=== PATIENT | female | born 1960 | race Caucasian/White ===

== ENCOUNTER → 2017-01-13 | Outpatient (CLI) | payer BC ==
--- NOTE | 2017-01-13 19:53 | KCIC ---
Bilateral digital screening mammograms with CAD: HISTORY Routine screening. COMPARISON Comparison is made to previous studies dated 10/24/2014 and 04/27/2012. FINDINGS Breast density category B. The skin and nipples show no abnormalities. No abnormal lymph nodes are seen in the axilla. The breast parenchyma shows scattered fibroglandular density. There are no dominant masses, suspicious calcifications or architectural distortions. IMPRESSION No evidence of malignancy. Recommend routine annual mammographic screening. This study was interpreted with the benefit of Computerized Aided Detection (CAD). Mammography is not 100% sensitive in detecting breast cancer. Therefore, a self breast exam and a clinical breast exam are very important. A negative mammogram does not negate a clinically suspicious finding and should not result in a delay in biopsying a clinically suspicious abnormality. BI-RADS category 1. Negative. This patient's information has been entered into a reminder system for the patient to be notified with the results of this examination and a target date for her next mammograms. Electronically signed by: Candelaria Eubanks MD (Jan 13, 2017 19:51:48)
== END | disposition home or self-care (01) ==
LOC: KCIC MAMMO 14:48
PROVIDERS: ATTEND Obstetrics & Gynecology
DX: Z12.31 Encounter for screening mammogram for malignant neoplasm of breast (principal)
CPT/HCPCS: G0202; 77067

== ENCOUNTER → 2018-03-15 | Outpatient (CLI) | payer BC | END | disposition home or self-care (01) | LOC: KCIC MAMMO 15:31 | DX: Z12.31 Encounter for screening mammogram for malignant neoplasm of breast (principal) | CPT/HCPCS: 77067 ==

== ENCOUNTER 2019-02-24 09:13 | Emergency (ER) | payer BC ==
[~2019-02-24] VITALS: Ht 172.7 cm; Wt 102.1 kg
[2019-02-24 09:17] VITALS: BP 140/70
[2019-02-24] MEDS ORDERED: HYDR-3164 PO (09:41)
[2019-02-24] MEDS ORDERED: OFLO5DRO7 OT (09:41)
--- NOTE | 2019-02-24 09:41 | PHYS DOC ---
Past Medical History Past Medical History: GERD Past Surgical History: Cholecystectomy, Hysterectomy, Other Additional Past Surgical Histo: L EAR Alcohol Use: Occasionally Drug Use: None Adult General Chief Complaint Chief Complaint: EARACHE/EAR PAIN HPI HPI Patient is a 58 year old female who presents with pain and bleeding from her right ear after she landed [place] [place] today. The patient states that she heard a popping sensation as she landed. She denies any other injury. She denies headache or recent earache. Review of Systems Review of Systems Constitutional: Denies fever or chills [] Eyes: Denies change in visual acuity, redness, or eye pain [] HENT: See history of present illness Respiratory: Denies cough or shortness of breath [] Cardiovascular: No additional information not addressed in HPI [] Musculoskeletal: Denies back pain or joint pain [] Integument: Denies rash or skin lesions [] Neurologic: Denies headache, focal weakness or sensory changes [] Endocrine: Denies polyuria or polydipsia [] All other systems were reviewed and found to be within normal limits, except as documented in this note. Allergies Allergies Allergies Coded Allergies Type Severity Reaction Last Updated Verified Sulfa (Sulfonamide Antibiotics) Allergy Intermediate 02/24/19 Yes Physical Exam Physical Exam Constitutional: Well developed, well nourished, no acute distress, non-toxic appearance. [] HENT: Normocephalic, atraumatic, ruptured tympanic membrane to the right noted with blood in the canal, oropharynx moist, no oral exudates, nose normal. [] Eyes: PERRLA, EOMI, conjunctiva normal, no discharge. [] Neck: Normal range of motion, no tenderness, supple, no stridor. [] Cardiovascular:Heart rate regular rhythm, no murmur [] Lungs & Thorax: Bilateral breath sounds clear to auscultation [] Neurologic: Alert and oriented X 3, normal motor function, normal sensory function, no focal deficits noted. [] Psychologic: Affect normal, judgement normal, mood normal. [] Current Patient Data Vital Signs Vital Signs Date Time Temp Pulse Resp B/P (MAP) Pulse Ox O2 Delivery O2 Flow Rate FiO2 02/24/19 09:17 97.5 73 16 140/70 (93) 97 Room Air 97.5 EKG EKG [] Radiology/Procedures Radiology/Procedures [] Course & Med Decision Making Course & Med Decision Making Pertinent Labs and Imaging studies reviewed. (See chart for details) []The patient is to use the eardrops as prescribed. She is given a small amount of pain medication she has been counseled to not drive or operate heavy machinery while taking this medication. She will follow-up with ENT. Keily Disclaimer Keily Disclaimer This electronic medical record was generated, in whole or in part, using a voice recognition dictation system. Departure Departure Impression: Primary Impression: Barotrauma, otic Disposition: HOME, SELF-CARE Condition: STABLE Referrals: REILLY CALERO MD (PCP) EVA CALERO MD Patient Instructions: Ear Barotrauma Additional Instructions: Take the antibiotics as directed. Follow-up with Dr. Calero for further evaluation and treatment of your ruptured tympanic membrane. If worsening return to the emergency department. Scripts Hydrocodone/Apap 5-325 (NORCO 5-325 TABLET) 1 Each Tablet 1 TAB PO PRN Q6HRS PRN for PAIN, #14 TAB 0 Refills Prov: JOEY ASTORGA APRN 02/24/19 Ofloxacin (OFLOXACIN) 5 Ml Drops 5 ML OT BID for ruptured TM for 7 Days, DROP Prov: JOEY ASTORGA APRN 02/24/19 JOEY ASTORGA APRN Feb 24, 2019 09:41
== END 2019-02-24 10:18 | disposition home or self-care (01) ==
LOC: ER 09:13
DX: T70.0XXA Otitic barotrauma, initial encounter (principal); H72.91 Unspecified perforation of tympanic membrane, right ear; K21.9 Gastro-esophageal reflux disease without esophagitis; Z90.49 Acquired absence of other specified parts of digestive tract; Z90.710 Acquired absence of both cervix and uterus; Z88.2 Allergy status to sulfonamides; X58.XXXA Exposure to other specified factors, initial encounter
CPT/HCPCS: 99283

== ENCOUNTER → 2019-04-03 | Outpatient (CLI) | payer BC ==
[~2019-04-03] MED LIST: HYDR-3164 PO; OFLO5DRO7 OT
--- NOTE | 2019-04-03 17:03 | KCIC ---
CT temporal bone without contrast Indication: Conductive hearing loss on the left, history of perforated right eardrum and left ear surgery Technique: Noncontrast CT imaging was performed of the temporal bone, multiplanar reconstruction images submitted. One or more of the following individualized dose reduction techniques were utilized for this examination: 1. Automated exposure control 2. Adjustment of the mA and/or kV according to patient size 3. Use of iterative reconstruction technique. Comparison: None Findings: Left tympanic membrane is more thickened in appearance than the right. Left tegmen mastoideum appears thin, left mastoid air cells overall aerated. Vestibules, cochlea, semicircular canals appear symmetric in appearance. External auditory canals are patent bilaterally. There is nonspecific soft tissue density extending more medial to the manubrium of the malleus which appears eroded more distally. There is also nonvisualization of left incus, can be visualized on the right. Right mastoid air cells are aerated. There is a small air-fluid level on the left sphenoid sinus. IMPRESSION: 1. There is nonspecific soft tissue density extending medial to the partially eroded left manubrium of the malleus, consideration of sequela of fibrotic change given history of surgery versus sequela of cholesteatoma. There is also nonvisualization of left incus which is presumably eroded. There is some asymmetric thickening of the left tympanic membrane comparing with the right. 2. There is a small air-fluid level in the left sphenoid sinus, could be seen with acute sinusitis in the appropriate clinical setting. Electronically signed by: Nicholas Nicole MD (04/03/2019 5:00 PM) [id number]
== END | disposition home or self-care (01) ==
LOC: KCIC CT 15:22
PROVIDERS: ATTEND Otolaryngology
DX: H93.8X2 Other specified disorders of left ear (principal); H90.12 Conductive hearing loss, unilateral, left ear, with unrestricted hearing on the contralateral side
CPT/HCPCS: 70480

== ENCOUNTER → 2020-11-20 | Outpatient (CLI) | payer BC ==
--- NOTE | 2020-11-20 16:42 | KCIC ---
Bilateral digital screening mammograms Reason for examination: Routine screening. Comparison is made to previous study dated March 15, 2018 and priors Routine CC and MLO digital views obtained. Interpretation was made with the benefit of CAD. The skin and nipples show no abnormalities. No abnormal lymph nodes are seen. The breast parenchyma i s scattered fibroglandular elements. (Breast density: Category B.) There are no suspicious masses, lizarraga spicious calcifications or architectural distortions. Right upper outer breast mid depth intramammary lymph node is stable, benign. Impression: Negative mammogram. Recommend routine screening. BI-RADS Category 1: Negative. "Our facility is accredited by the [employer] Mammography [employer]." This patient's information has been entered into a reminder system for the patient to be notified wit h the results of her examination and a target date for the next mammogram. Electronically signed by: Chris Hatfield MD (11/20/2020 4:38 PM) [id number]
== END ==
LOC: KCIC MAMMO 08:12
PROVIDERS: ATTEND Obstetrics & Gynecology
DX: Z12.31 Encounter for screening mammogram for malignant neoplasm of breast (principal); N64.89 Other specified disorders of breast
CPT/HCPCS: 77067

== ENCOUNTER → 2021-10-20 | Outpatient (CLI) | payer BC ==
--- NOTE | 2021-10-20 17:02 | KCIC ---
XR KNEE _3 VIEWS_LT History: Reason: Posterior knee pain since June. Swelling. / Spl. Instructions: / History: Technique: 3 views left knee Comparison: None. Findings: No dislocation. No acute fracture. Mild degenerative changes most prominent within the medial and pat ellofemoral compartment. No significant knee joint effusion. Impression: 1. Mild left knee DJD. Electronically signed by: Karel Quintana DO (10/20/2021 4:59 PM) [id number]
== END ==
LOC: KCIC 08:47
PROVIDERS: ATTEND Family Medicine
DX: M17.12 Unilateral primary osteoarthritis, left knee (principal)
CPT/HCPCS: 73562

== ENCOUNTER → 2021-12-15 | Outpatient (CLI) | payer BC ==
--- NOTE | 2021-12-15 12:14 | KCIC ---
Bilateral digital screening 2-D and 3-D (digital breast tomosynthesis) mammogram: Reason for examination: Routine screening. Comparison: Mammogram from 11/20/2020 and 03/15/2018. Interpretation was made with the benefit of CAD. FINDINGS: Breast density: Category B. There are scattered areas of fibroglandular density. No suspicious breast mass, malignant appearing calcifications, or architectural distortion is seen. T here is an unchanged 6 mm oval circumscribed mass in the 9:00 position of the right breast, 6 cm from the nipple, which is likely a intramammary lymph node. IMPRESSION: No evidence of malignancy. Assessment: BI-RADS 2. Benign finding. Recommendation: Routine screening mammograms. The patient will receive a letter with the results in the mail. Patient information will be entered i nto the mammography reminder system with a target recall date for the next mammogram. A reminder johanne er will be generated. Electronically signed by: Rox Cole MD (12/15/2021 12:11 PM) [id number]
== END ==
LOC: KCIC MAMMO 10:36
PROVIDERS: ATTEND Obstetrics & Gynecology
DX: Z12.31 Encounter for screening mammogram for malignant neoplasm of breast (principal)
CPT/HCPCS: 77063; 77067

== ENCOUNTER → 2021-12-15 | Outpatient (CLI) | payer BC ==
--- NOTE | 2021-12-15 11:06 | KCIC ---
EXAMINATION: XR HIP (WITH OR WITHOUT PELVIS)LEFT 1 VIEW CLINICAL HISTORY: Left hip, inguinal pain. No injury, pain about 1 month. TECHNIQUE: XR HIP (WITH OR WITHOUT PELVIS)LEFT 1 VIEW Number of Images/Views: 2 COMPARISON: None FINDINGS: Joint space and alignment in the left hip maintained. Right hip unremarkable on limited evaluation. S I joints and pubic symphysis maintained. No acute fracture. 2.1 x 2.3 cm ovoid density projected with in the left hemipelvis, nonspecific. IMPRESSION: No acute osseous abnormality. Nonspecific 2.3 cm density projected within the left hemipelvis. Electronically signed by: Juan Benitez DO (12/15/2021 11:03 AM) [facility]HER
== END ==
LOC: KCIC 10:11
PROVIDERS: ATTEND Family Medicine
DX: M25.552 Pain in left hip (principal); R10.2 Pelvic and perineal pain
CPT/HCPCS: 73501

== ENCOUNTER → 2022-02-07 | Outpatient (CLI) | payer BC ==
--- NOTE | 2022-02-07 10:49 | KCIC ---
Study: MRI of the left hip without contrast INDICATION: Left hip pain. COMPARISON: Radiographs from 12/15/2021 TECHNIQUE: Multiplanar MR imaging of the left hip performed without the use of intravenous or intra-a rticular contrast. FINDINGS: Bones/hip: No fracture, avascular necrosis or stress reaction. No focally aggressive marrow signal ab normality. No subchondral cystic change or marrow edema at the left hip. Maintained femoral head/neck offset. Normal lateral center edge opening angle. Labrum/cartilage: Probable mild official chondrosis at the left hip. No high-grade or full-thickness chondral defect. Shallow undersurface labral tear best seen from anterior/superior to superior. Ligamentum teres: Heterogeneous but intact. Greater trochanteric bursa: Within normal limits. Musculotendinous: No tendon tear or advanced tendinosis. Within normal limits ischiofemoral space. No localized muscular edema around the left hip. Miscellaneous: Normal volume hip joint fluid. Unremarkable sciatic nerve bundle on the left. No ingui nal adenopathy or significant incidental finding within the partially assessed pelvis. IMPRESSION: 1. Shallow undersurface tear of the left acetabular labrum best seen from anterior/superior to super ior. Probable mild superficial chondrosis without a high-grade or full-thickness defect. 2. Degenerative heterogeneity of the ligamentum teres but remaining intact. No tendon tear or advanc ed tendinosis. Electronically signed by: HARPREET HERNANDEZ MD (02/07/2022 10:47 AM) [id number]
== END ==
LOC: KCIC MRI 07:55
PROVIDERS: ATTEND Family Medicine
DX: S73.192A Other sprain of left hip, initial encounter (principal); X58.XXXA Exposure to other specified factors, initial encounter; Y93.89 Activity, other specified; Y92.89 Other specified places as the place of occurrence of the external cause; Y99.8 Other external cause status
CPT/HCPCS: 73721

== ENCOUNTER → 2022-03-17 | Outpatient (CLI) | payer BC ==
[~2022-03-17] MED LIST changes: +BUPIVACAINE MPF 0.5% 10 ML VIAL. INT ART ONE; +IOHEXOL 300 MG/ML 50 ML VIAL. INT ART ONE; +LIDOCAINE 1% Multi-Dose 20 ML VIAL. ID ONE; +TRIAMCINOLONE PRES.FREE 40 MG/ML VIAL. INT ART ONE
--- NOTE | 2022-03-17 17:37 | KCIC ---
Exam Date: 03/17/2022 8:25 AM IR ARTHROCENT INT JT ASP/INJ LT Indication: Reason: OA Lt hip, chronic pain. / Spl. Instructions: 2mL Bupivicaine,1mL lidocaine,40mg Kenalog,7 sec fl, 2 images. / History: . PROCEDURE NOTE FOR FLUOROSCOPIC GUIDED NEEDLE PLACEMENT, IODINATED CONTRAST INJECTION, AND LEFT HIP T HERAPEUTIC INJECTION HISTORY: LEFT hip pain. PROCEDURE: A timeout was performed to ensure that the patient's name and procedure matched our inform ation. The staff personally assured that informed consent was obtained. After the risks, benefits a nd alternatives to the procedure were discussed with the patient, the patient elected to proceed. Und er fluoroscopic guidance, a suitable target was selected and the overlying skin was marked. The patie nt was prepped and draped in the usual sterile fashion. Local anesthesia with 5 cc lidocaine was give n. Under fluoroscopic guidance, a 20 gauge spinal needle was inserted through the anesthetized tract into the LEFT hip joint. Intra-articular location was confirmed by a test injection of 0.5 cc Isovue 200. The joint was then injected with a combination of 1 cc Kenalog (40 mg/ml) and 2 cc 0.5% Marcain e (Bupivacaine) and 1 cc lidocaine. The patient tolerated the procedure very well without any immediate adverse consequence. COMPLICATIONS: None. Total fluoroscopy time: 7 seconds Fluoroscopic images: 0 IMPRESSION: Successful fluoroscopic-guided needle placement, iodinated contrast injection and LEFT h ip therapeutic injection. Electronically signed by: Constantino Vidal MD (03/17/2022 5:34 PM) [id number]
== END | disposition home or self-care (01) ==
LOC: KCIC 08:11
PROVIDERS: ATTEND Orthopaedic Surgery Sports Medicine
DX: M16.12 Unilateral primary osteoarthritis, left hip (principal); Z72.89 Other problems related to lifestyle; Z79.899 Other long term (current) drug therapy; Z98.890 Other specified postprocedural states; Z88.2 Allergy status to sulfonamides
CPT/HCPCS: 20610; 77002; J3301; J3490; Q9967